=== PATIENT | female | born 1975 | race Two or more races ===

== ENCOUNTER 2017-08-22 23:44 | Emergency (ER) | payer OTHER ==
[~2017-08-22] VITALS: Ht 154.9 cm; Wt 81.2 kg
[2017-08-23 00:20] VITALS: BP 153/86
--- NOTE | 2017-08-23 00:23 | Emergency Room Report ---
History of Present Illness General Chief Complaint: Laceration Source: Patient Present Illness HPI Is a 42-year-old female who is right-hand dominant. She presents from work with laceration to her left ring finger. She was closing the glass case and in her hand slipped and she sustained a laceration. No other injury. Occurred just prior to arrival. Mild throbbing pain. No active bleeding. Allergies: Coded Allergies: No Known Allergies (Unverified , 08/23/17) Patient History Past Medical History: see triage record, old chart reviewed Past Surgical History: none Pertinent Family History: none Social History: Denies: smoking Now: No Immunizations: other Reviewed Nursing Documentation: PMH: Agreed; PSxH: Agreed Nursing Documentation-PMH Past Medical History: No Stated History Review of Systems Eye: Denies: eye pain, blurred vision ENT: Denies: ear pain, nose congestion, throat swelling Respiratory: Denies: cough, shortness of breath Cardiovascular: Denies: chest pain, palpitations Gastrointestinal: Denies: abdominal pain, diarrhea, nausea, vomiting Musculoskeletal: Denies: back pain, joint pain Skin: Denies: rash Neurological: Denies: headache, numbness Endocrine: Denies: increased thirst, increased urine Hematologic/Lymphatic: Denies: easy bruising All Other Systems: negative except mentioned in HPI Physical Exam Vital Signs Date Time Temp Pulse Resp B/P (MAP) Pulse Ox O2 Delivery O2 Flow Rate FiO2 08/22/17 23:58 98.5 87 16 153/86 96 Room Air 98.4 vitals with high blood pressure Sp02 EP Interpretation: reviewed, normal General Appearance: well appearing, no apparent distress, alert Head: normocephalic, atraumatic Eyes: bilateral eye PERRL, bilateral eye EOMI ENT: hearing grossly normal, normal pharynx Neck: full range of motion, supple, no meningismus Respiratory: chest non-tender, lungs clear, normal breath sounds Cardiovascular #1: regular rate, rhythm, no murmur Gastrointestinal: normal bowel sounds, non tender, no mass, no organomegaly, no bruit, non-distended Musculoskeletal: back normal, gait/station normal, normal range of motion, other - 1 cm laceration on the volar aspect of the distal phalanx on the left ring finger Neurologic: alert, oriented x3 Psychiatric: mood/affect normal Skin: warm/dry Procedures Laceration/Wound Repair Laceration/Wound Repair : Consent: Verbal Wound Location: upper extremity Wound's Depth, Shape: superficial Wound Length (cm): 1 Wound Explored: clean Irrigated w/ Saline (ccs): 1000 Wound Repaired With: sutures Suture Size/Type: 5:0, other - chromic Number of Sutures: 2 Patient Tolerated: Well Complications: None Medical Decision Making Diagnostic Impression: Primary Impression: Laceration of finger Qualified Codes: S61.215A - Laceration without foreign body of left ring finger without damage to nail, initial encounter ER Course She presents with a finger laceration. No foreign body. No tendon laceration. No fracture. Last Vital Signs Date Time Temp Pulse Resp B/P (MAP) Pulse Ox O2 Delivery O2 Flow Rate FiO2 08/22/17 23:58 98.5 87 16 153/86 96 Room Air 98.4 Status: improved Disposition: HOME, SELF-CARE Condition: Stable Patient Instructions: Laceration Care, Adult Additional Instructions: Follow-up with workman's comp doctor in 2-3 days. Return if worse. Sutures will fall off. If have not fall off in 7 days, have them removed. JONATHAN HOLLIDAY M.D. Aug 23, 2017 00:23
[2017-08-23] MEDS ORDERED: Bacitracin Oint UD TOPIC ONE (01:15)
[2017-08-23 01:19] VITALS: BP 153/86
== END 2017-08-23 01:21 | disposition home or self-care (01) ==
LOC: EMR 08-23 00:29
DX: S61.215A Laceration without foreign body of left ring finger without damage to nail, initial encounter (principal); W25.XXXA Contact with sharp glass, initial encounter; Y92.9 Unspecified place or not applicable
CPT/HCPCS: 99283

== ENCOUNTER 2017-09-01 14:12 | Emergency (ER) | payer OTHER ==
[~2017-09-01] VITALS: Ht 154.9 cm; Wt 83.0 kg
--- NOTE | 2017-09-01 14:41 | Emergency Room Report ---
History of Present Illness General Chief Complaint: Wound Recheck/Suture Removal Source: Patient Present Illness HPI 42-year-old female patient presents ER requesting suture removal. Patient was seen at [facility] 10 days ago for suture placement in left hand. Patient reports he is ambidextrous, mostly right-hand dominant. Reports that wound is healing well , has been applying bacitracin to wound. Reports feels okay to go back to work. Denies other acute symptoms. Denies fever, chest pain, shortness of breath. Denies hand swelling. Allergies: Coded Allergies: No Known Allergies (Unverified , 08/23/17) Patient History Past Medical History: see triage record Reviewed Nursing Documentation: PMH: Agreed; PSxH: Agreed Nursing Documentation-PMH Past Medical History: No Stated History Review of Systems All Other Systems: negative except mentioned in HPI Physical Exam Vital Signs Date Time Temp Pulse Resp B/P (MAP) Pulse Ox O2 Delivery O2 Flow Rate FiO2 09/01/17 14:15 98.4 97 18 147/90 98 Room Air 98.4 Sp02 EP Interpretation: reviewed, normal General Appearance: well appearing, no apparent distress, alert, GCS 15, non- toxic Head: normocephalic, atraumatic Respiratory: lungs clear, normal breath sounds, no rhonchi, no respiratory distress, no accessory muscle use, no wheezing, speaking full sentences Cardiovascular #1: regular rate, rhythm, no edema Cardiovascular #2: 2+ radial (R), 2+ radial (L) Musculoskeletal: back normal, digits/nails normal, gait/station normal, normal range of motion, non-tender Skin: laceration - Left hand Ring finger: Healing laceration, no erythema, no edema, no pain with extension, no fusiform swelling Medical Decision Making PA Attestation Dr. Abraham is my supervising Physician whom patient management has been discussed with. Diagnostic Impression: Primary Impression: Encounter for removal of sutures ER Course Pt. presents to the ED requesting wound check of laceration on left hand Ring finger. Multiple differentials considered. No fusiform swelling, no TTP along flexor tendon, no pain wtih extension, finger not held in flexion, low suspicion for flexor tenosynovitis. Vital signs: are WNL, pt. is afebrile Ordered Bacitrain. ER COURSE: Wound has no signs of infection., no erythema, edema, TTP, sensation is intact to light touch. Bacitracin applied to wound. Apply Neosporin to wound to reduce appearance of scar. keep wound clean and dry, avoid getting hand dirty. 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 Able to perform normal work duties. Follow up with PCP for clearance to return to normal activities. completed Workmen's Compensation paperwork. DISCHARGE: Patient instructed to continue with medications per inial ER provider instructions. At this time pt. is stable for d/c to home. Patient resting comfortably, in no acute distress, nontoxic appearing. Will provide printed patient care instructions and any necessary prescriptions. Care plan and follow up instructions have been discussed with the patient prior to discharge. Patient instructed to follow-up with primary care provider for further treatment and referral. Patient questions asked and answered. ER precautions given. Patient instructed to return to ER immediately for any new or worsening of symptoms including but not limited to fever, worsening of pain symptoms. - Please note that this Emergency Department Report was dictated using [employer] worker technology software, occasionally this can lead to erroneous entry secondary to interpretation by the dictation equipment. Last Vital Signs Date Time Temp Pulse Resp B/P (MAP) Pulse Ox O2 Delivery O2 Flow Rate FiO2 09/01/17 14:15 98.4 97 18 147/90 98 Room Air 98.4 Disposition: HOME, SELF-CARE Condition: Stable Patient Instructions: Suture Removal, Care After Additional Instructions: Followup with primary care provider in 3 -5 days. Wound clean and dry, for normal duties but should avoid excessive contact with possible sources of infection to prevent infection. Apply Neosporin to help prevent scarring. Patient questions asked and answered. ER precautions given, patient instructed to return to ER immediately for any new or worsening of symptoms. Tim Block Sep 01, 2017 14:41
[2017-09-01 14:45] VITALS: BP 147/90
[2017-09-01] MEDS ORDERED: Bacitracin Oint UD TOPIC ONE (14:45)
[2017-09-01 15:59] VITALS: BP 130/77
== END 2017-09-01 15:35 | disposition home or self-care (01) ==
LOC: EMR 15:00
DX: S61.215D Laceration without foreign body of left ring finger without damage to nail, subsequent encounter (principal); X58.XXXD Exposure to other specified factors, subsequent encounter; Z48.02 Encounter for removal of sutures
CPT/HCPCS: 99281